=== PATIENT | male | born 1990 | race Two or more races ===

== ENCOUNTER 2025-01-06 22:00 | Inpatient (IN) | payer MEDICAID, OTHER ==
[~2025-01-06] VITALS: Ht 165.1 cm; Wt 75.2 kg
[2025-01-06 23:27] LABS: Hematocrit 48.9 % (41.0-53.0); Hemoglobin 17.1 g/dL (13.5-17.5); Mean Corpuscular Hemoglobin 31.1 pg (28.0-32.0); Mean Corpuscular Volume 88.7 fL (80.0-100.0); Nucleated Red Blood Cells % 0.1 %
[2025-01-06 23:28] LABS: Chloride 101 mmol/L (98-107); Sodium 140 mmol/L (136-145)
[2025-01-06 23:29] LABS: Anion Gap 19 (5-15); Carbon Dioxide 20 mmol/L (20-31)
[2025-01-06 23:30] LABS: Calcium 9.1 mg/dL (8.7-10.4)
[2025-01-06] MEDS: SODIUM CHLORIDE 0.9% 1,000 ML IV ONE (23:30)
[2025-01-06 23:33] LABS: Potassium 3.1 mmol/L (3.5-5.1)
[2025-01-06 23:35] LABS: Lipase 41 U/L (12-53)
[2025-01-06 23:40] LABS: BUN/Creatinine Ratio 5.5 (10.0-20.0); Blood Urea Nitrogen < 5 mg/dL (9-23); Glucose 139 mg/dL (74-106)
[2025-01-06] MEDS: ONDANSETRON HCL 4 MG/2 ML VIAL IV ONE (23:55)
--- NOTE | 2025-01-07 00:02 | ED.PDOC ---
GI ASSESSMENT HPI Comments 34-year-old male with a history of alcohol, and cocaine abuse presents to the ED with a chief complaint of diffuse abdominal pain with the associated nausea and vomiting. Patient states that his symptoms started this morning after drinking and using cocaine. Patient notes with the he has recently been throwing up blood. Patient denies any headache, blurry vision, weakness, chest pain, or any other associated symptoms, modifiers at this time. PHYSICAL EXAM: General: Awake, alert and oriented. Severe distress. Skin: Skin in warm, dry and intact. Appropriate color for ethnicity. HEENT: The head is normocephalic and atraumatic. Conjunctivae are clear without exudates or hemorrhage. Sclera is non-icteric. EOM are intact. No signs of nystagmus. Eyelids are normal in appearance without swelling or lesions. Oral mucosa is pink and moist Neck: The neck is supple with normal range of motion. No JVD. Cardiac: Heart rate and rhythm are normal. No murmurs, gallops, or rubs are auscultated. Respiratory: No signs of respiratory distress. Lung sounds are clear in all lobes bilaterally without rales, rhonchi, or wheezes. Abdominal: Abdomen is soft, non-tender without distention, guarding or rigidity. Bowel sounds are present and normoactive in all four quadrants. Extremities: Upper and lower extremities are atraumatic in appearance without deformity or edema. Neurological: The patient is awake, alert and oriented to person, place, and time with normal speech. Speech is clear. There is no facial asymmetry. Psychiatric: Appropriate mood and affect. Good judgement and insight. REVIEW OF SYSTEMS: General: No fever, no chills, or fatigue HEENT: No sore throat, no earache, no congestion, no neck pain. Cardiac: No chest pain. No palpitations. Lungs: No shortness of breath, no cough. GI: + nausea, + vomiting, + diarrhea, no constipation, + abdominal pain : No dysuria, frequency, or urgency. No hematuria. Musculoskeletal: No joint pain , no joint swelling, no extremity edema. Skin: No rash, no itching. Neuro: No headache, no dizziness, no weakness Chief Complaint: Abdominal Pain Time Seen by MD: 23:58 Reviewed Notes: Nurses Notes Allergies: Coded Allergies: NO KNOWN ALLERGIES (Unverified , 01/06/25) Information Source: Patient Mode of Arrival: EMS Timing: Hours Duration: Since onset, Hours Prehospital treatment: None Quality: Aching, Cramping Vomitus: Watery, Bloody Stool: Loose Severity: Severe Recent: None Recent Hx of: None Pain Location: Diffuse Modifying Factors: Exertion, Movement Associated sign and symptoms: Nausea, Vomiting, Diarrhea, Abdominal Pain Past Medical History PAST MEDICAL HISTORY: Denies Surgical History: Denies all surgeries Family History Family History: Unknown Social History Smoker: Non-Smoker Alcohol: Heavy Drugs: Other (Cocaine) Lives In: Home Was a procedure done? Was a procedure done?: No GI differential Dx Differential Diagnosis: Appendicitis, Bowel Obstruction, Cholangitis, Cholecystitis, Constipation, Gastritis/PUD, Gastroenteritis, UTI, Urolithiasis, Dehydration, Drug toxicity, Electrolyte Imbalance, Food Poisoning, Kidney Stone X-Ray, Labs, Meds, VS Vital Signs Date Time Temp Pulse Resp B/P (MAP) Pulse Ox O2 Delivery O2 Flow Rate FiO2 01/07/25 03:12 114 20 100 Room Air 01/07/25 03:12 98.3 114 20 135/80 (98) 100 98.3 01/06/25 22:06 98.0 122 16 143/87 98 98.0 Lab Test 01/06/25 23:07 Range/Units White Blood Count 6.8 4.4-10.8 10^3/uL Red Blood Count 5.51 4.5-5.90 10^6/uL Hemoglobin 17.1 13.5-17.5 g/dL Hematocrit 48.9 41.0-53.0 % Mean Corpuscular Volume 88.7 80.0-100.0 fL Mean Corpuscular Hemoglobin 31.1 28.0-32.0 pg Mean Corpuscular Hemoglobin Concent 35.1 32.0-36.0 g/dL Red Cell Distribution Width 14.0 11.8-14.3 % Platelet Count 444 140-450 10^3/uL Mean Platelet Volume 7.1 6.9-10.8 fL Neutrophils (%) (Auto) 70.3 37.0-80.0 % Lymphocytes (%) (Auto) 22.2 10.0-50.0 % Monocytes (%) (Auto) 6.8 0.0-12.0 % Eosinophils (%) (Auto) 0.3 0.0-7.0 % Basophils (%) (Auto) 0.4 0.0-2.0 % Neutrophils # (Auto) 4.8 1.6-8.6 10 ^3/uL Lymphocytes # (Auto) 1.5 0.4-5.4 10 ^3/uL Monocytes # (Auto) 0.5 0-1.3 10 ^3/uL Eosinophils # (Auto) 0 0-0.8 10 ^3/uL Basophils # (Auto) 0 0-0.2 10 ^3/uL Nucleated Red Blood Cells 0.1 % Sodium Level 140 136-145 mmol/L Potassium Level 3.1 L 3.5-5.1 mmol/L Chloride Level 101 98-107 mmol/L Carbon Dioxide Level 20 20-31 mmol/L Anion Gap 19 H 5-15 Blood Urea Nitrogen < 5 L 9-23 mg/dL Creatinine 0.91 0.700-1.30 mg/dL Glomerular Filtration Rate Calc 114 >90 mL/min BUN/Creatinine Ratio 5.5 L 10.0-20.0 Serum Glucose 139 H 74-106 mg/dL Calcium Level 9.1 8.7-10.4 mg/dL Lipase 41 12-53 U/L Current Medications Medications (Trade) Dose Ordered Sig/Latoya Route Start Time Stop Time Status Last Admin Ondansetron HCl (Zofran) 4 mg ONCE ONCE IV 01/06/25 23:30 01/06/25 23:31 DC 01/06/25 23:55 Sodium Chloride 1,000 ml @ 1,000 mls/hr Q1H ONCE IV 01/06/25 23:30 01/07/25 00:29 DC 01/06/25 23:30 Potassium Chloride (Klor-Con Tablet) 40 meq ONCE ONCE PO 01/07/25 01:00 01/07/25 01:06 DC 01/07/25 01:24 Pantoprazole Sodium (Protonix) 40 mg ONCE ONCE IV 01/07/25 01:45 01/07/25 01:46 DC 01/07/25 02:43 Metoclopramide HCl (Reglan Injection) 10 mg ONCE ONCE IV 01/07/25 01:45 01/07/25 01:46 DC 01/07/25 02:38 Al Hydrox/Mg Hydrox/Simethicone (Maalox Plus) 30 ml ONCE ONCE PO 01/07/25 02:45 01/07/25 02:47 DC 01/07/25 03:09 Lidocaine HCl (Xylocaine 2% Viscous) 10 ml ONCE ONCE PO 01/07/25 02:45 01/07/25 02:47 DC 01/07/25 03:09 Time of 1ST Reevaluation: 00:29 Reevaluation 1ST: Unchanged Patient Education/Counseling: Need For Follow Up Family Education/Counseling: No Family Present SEPSIS Sepsis Screen Date sepsis recognized/suspect: Jan 06, 2025 Time Sepsis recognized/suspect: 2205 Recent Procedure: No On Antibiotic Therapy: No Respiratory Rate >20: No Heart Rate >90: Yes Temp<36 C (96.8 F) or >38.3 C: No SBP <90 or MAP <65 mmHG: No New Acute Mental Status Change: No Is the patient on CPAP, BIPAP,: No Physician Orders Urinalysis (01/06/25 23:05) Ct Ab Pel With Iv Con Only (01/07/25 01:48) Vital Signs Date Time Temp Pulse Resp B/P (MAP) Pulse Ox O2 Delivery O2 Flow Rate FiO2 01/07/25 03:12 114 20 100 Room Air 01/07/25 03:12 98.3 114 20 135/80 (98) 100 98.3 01/06/25 22:06 98.0 122 16 143/87 98 98.0 Laboratory Tests Test 01/06/25 23:07 White Blood Count 6.8 10^3/uL (4.4-10.8) Medications Medications Dose Ordered Sig/Latoya Route Start Time Stop Time Status Last Admin Dose Admin Al Hydrox/Mg Hydrox/Simethicone 30 ml ONCE ONCE PO 01/07/25 02:45 01/07/25 02:47 DC 01/07/25 03:09 Lidocaine HCl 10 ml ONCE ONCE PO 01/07/25 02:45 01/07/25 02:47 DC 01/07/25 03:09 Metoclopramide HCl 10 mg ONCE ONCE IV 01/07/25 01:45 01/07/25 01:46 DC 01/07/25 02:38 Ondansetron HCl 4 mg ONCE ONCE IV 01/06/25 23:30 01/06/25 23:31 DC 01/06/25 23:55 Pantoprazole Sodium 40 mg ONCE ONCE IV 01/07/25 01:45 01/07/25 01:46 DC 01/07/25 02:43 Potassium Chloride 40 meq ONCE ONCE PO 01/07/25 01:00 01/07/25 01:06 DC 01/07/25 01:24 Sodium Chloride 1,000 ml @ 1,000 mls/hr Q1H ONCE IV 01/06/25 23:30 01/07/25 00:29 DC 01/06/25 23:30 Departure 1 Departure Time of Disposition: 04:31 Impression: Primary Impression: Upper GI bleed Additional Impression: Abdominal pain Disposition: ADMITTED INPATIENT Condition: Guarded Comments MDM: 34-year-old male who presents to the emergency department with abdominal pain, hematemesis Initial evaluation included thorough history, physical examination and appropriate diagnostic testing. Based on the clinical presentation and diagnostic findings, the patient appears to have upper GI bleed Given the complexity of the case and need for further management patient is being admitted to the hospitalist service for further monitoring, treatment and evaluation. Risks, benefits and alternatives of admission and proposed interventions were discussed with the patient. Patient is in agreement with the plan. Critical Care Note Critical Care Time?: No Stability Stability form required: No Heart Score Heart Score: Heart Score Response (Comments) Value History N/A 0 EKG N/A 0 Age N/A 0 Risk Factors N/A 0 Troponin N/A 0 Total 0 I personally scribed for SRINIVASAN ANDREW MD ([email or web address]) on 01/07/25 at 00:02. Electronically submitted by Rico Valdovinos ([email or web address]). SRINIVASAN ANDREW MD Jan 07, 2025 00:02
[2025-01-07] MEDS: POTASSIUM CHL 20 Meq TABLET PO ONE (01:24)
[2025-01-07] MEDS: IOHEXOL 300 MG/ML 100ML BOTTLE IJ ONE (02:07)
[2025-01-07] MEDS: METOCLOPRAMIDE HCL 5MG/ml INJ 2ml VIAL IV ONE (02:38)
[2025-01-07] MEDS: PANTOPRAZOLE 40 MG/10 ML VIAL INJ IV ONE (02:43)
[2025-01-07] MEDS: MORPHINE SULFATE INJ 2 MG/ml SYRG IV ONE (02:45)
[2025-01-07] MEDS: MAALOX PLUS or MAALOX 30 ML PO ONE (03:09)
[2025-01-07] MEDS: LIDOCAINE VISCOUS 2% 15ML UD PO ONE (03:09)
--- NOTE | 2025-01-07 03:13 | DVH ---
Exam: CT CT AB PEL WITH IV CON ONLY History: hemetemesis, abdominal pain Comparison Study: None TECHNIQUE: Multidetector CT of the abdomen was performed from lung bases to pubic symphysis. Imaging was performed without IV contrast. Axial, coronal and sagittal multiplanar reformats were obtained fr om the axial data set by the technologist. Radiation Dose Information: Dose-length product is 690.94 mGy*cm FINDINGS: Limited sections of the lung bases demonstrate no focal pulmonary mass. The liver, spleen, pancreas, and both adrenal glands demonstrate no acute findings. Hepatic steatosis and hepatomegaly. The gallbladder is unremarkable. The stomach is unremarkable. The small bowel loops are not dilated. The appendix is not clearly identified, although there are no secondary signs of appendicitis. No colonic obstruction. Diffuse colonic inflammation may reflect pancolitis. Bilateral kidneys are unremarkable. No hydronephrosis. Urinary bladder wall thickening which may reflect cystitis vs partial nondistention; consider correla tion with urinarlysis. No significant lymphadenopathy. No free air or free fluid. The aorta and IVC demonstrate no acute findings. Visualized osseous structures demonstrate no acute abnormality. IMPRESSION: 1. Diffuse colonic inflammation may reflect pancolitis. No bowel obstruction. 2. Urinary bladder wall thickening which may reflect cystitis vs partial nondistention; consider efrain elation with urinarlysis.
--- NOTE | 2025-01-07 04:53 | DVHHPRES ---
History of Present Illness History of Present Illness Dupplicated. Please dismiss. Review of Systems Allergies: Coded Allergies: NO KNOWN ALLERGIES (Unverified , 01/06/25) Exam Vital Signs Vital Signs Date Time Temp Pulse Resp B/P (MAP) Pulse Ox O2 Delivery O2 Flow Rate FiO2 01/07/25 03:12 114 20 100 Room Air 01/07/25 03:12 98.3 135/80 (98) 98.3 Labs/Xrays Labs Test 01/06/25 23:07 Range/Units White Blood Count 6.8 4.4-10.8 10^3/uL Red Blood Count 5.51 4.5-5.90 10^6/uL Hemoglobin 17.1 13.5-17.5 g/dL Hematocrit 48.9 41.0-53.0 % Mean Corpuscular Volume 88.7 80.0-100.0 fL Mean Corpuscular Hemoglobin 31.1 28.0-32.0 pg Mean Corpuscular Hemoglobin Concent 35.1 32.0-36.0 g/dL Red Cell Distribution Width 14.0 11.8-14.3 % Platelet Count 444 140-450 10^3/uL Mean Platelet Volume 7.1 6.9-10.8 fL Neutrophils (%) (Auto) 70.3 37.0-80.0 % Lymphocytes (%) (Auto) 22.2 10.0-50.0 % Monocytes (%) (Auto) 6.8 0.0-12.0 % Eosinophils (%) (Auto) 0.3 0.0-7.0 % Basophils (%) (Auto) 0.4 0.0-2.0 % Neutrophils # (Auto) 4.8 1.6-8.6 10 ^3/uL Lymphocytes # (Auto) 1.5 0.4-5.4 10 ^3/uL Monocytes # (Auto) 0.5 0-1.3 10 ^3/uL Eosinophils # (Auto) 0 0-0.8 10 ^3/uL Basophils # (Auto) 0 0-0.2 10 ^3/uL Nucleated Red Blood Cells 0.1 % Sodium Level 140 136-145 mmol/L Potassium Level 3.1 L 3.5-5.1 mmol/L Chloride Level 101 98-107 mmol/L Carbon Dioxide Level 20 20-31 mmol/L Anion Gap 19 H 5-15 Blood Urea Nitrogen < 5 L 9-23 mg/dL Creatinine 0.91 0.700-1.30 mg/dL Glomerular Filtration Rate Calc 114 >90 mL/min BUN/Creatinine Ratio 5.5 L 10.0-20.0 Serum Glucose 139 H 74-106 mg/dL Calcium Level 9.1 8.7-10.4 mg/dL Lipase 41 12-53 U/L SEPSIS Sepsis Screen Date sepsis recognized/suspect: Jan 07, 2025 Time Sepsis recognized/suspect: 313 Recent Procedure: No On Antibiotic Therapy: No Respiratory Rate >20: No Heart Rate >90: Yes Temp<36 C (96.8 F) or >38.3 C: No SBP <90 or MAP <65 mmHG: No New Acute Mental Status Change: No Is the patient on CPAP, BIPAP,: No Physician Orders Urinalysis (01/06/25 23:05) Ct Ab Pel With Iv Con Only (01/07/25 01:48) Vital Signs Date Time Temp Pulse Resp B/P (MAP) Pulse Ox O2 Delivery O2 Flow Rate FiO2 01/07/25 03:12 114 20 100 Room Air 01/07/25 03:12 98.3 114 20 135/80 (98) 100 98.3 01/06/25 22:06 98.0 122 16 143/87 98 98.0 Laboratory Tests Test 01/06/25 23:07 White Blood Count 6.8 10^3/uL (4.4-10.8) Medications Medications Dose Ordered Sig/Latoya Route Start Time Stop Time Status Last Admin Dose Admin Al Hydrox/Mg Hydrox/Simethicone 30 ml ONCE ONCE PO 01/07/25 02:45 01/07/25 02:47 DC 01/07/25 03:09 30 ML Lidocaine HCl 10 ml ONCE ONCE PO 01/07/25 02:45 01/07/25 02:47 DC 01/07/25 03:09 10 ML Metoclopramide HCl 10 mg ONCE ONCE IV 01/07/25 01:45 01/07/25 01:46 DC 01/07/25 02:38 10 MG Ondansetron HCl 4 mg ONCE ONCE IV 01/06/25 23:30 01/06/25 23:31 DC 01/06/25 23:55 4 MG Pantoprazole Sodium 40 mg ONCE ONCE IV 01/07/25 01:45 01/07/25 01:46 DC 01/07/25 02:43 40 MG Potassium Chloride 40 meq ONCE ONCE PO 01/07/25 01:00 01/07/25 01:06 DC 01/07/25 01:24 40 MEQ Sodium Chloride 1,000 ml @ 1,000 mls/hr Q1H ONCE IV 01/06/25 23:30 01/07/25 00:29 DC 01/06/25 23:30 1,000 MLS/HR AAYUSH BOYLE RESIDENT Jan 07, 2025 04:53
[2025-01-07] MEDS: cefTRIAXone 1GM/50ML D5W 50 ML IV ONE ×2 (05:30→07:23)
--- NOTE | 2025-01-07 06:07 | DVHHPRES ---
History of Present Illness Resident Creating Document: AAYUSH BOYLE RESIDENT History of Present Illness Justin King is a 34-year-old male with past medical history of GERD, peptic ulcer disease, colitis, alcohol and cocaine abuse. The patient presented to the ED with a chief complaint of acute epigastric abdominal pain 02/04, continue, no irradiation, associated with nausea and vomiting >#5. The patient reports being on alcoholics anonymous program, he stop drinking 2 months ago, but he relapsed and states he is been using large amounts of alcohol and cocaine for the last 4 days in a row. Today, he noticing hematemesis #3, malaise, dysuria and hand tremors that prompt his visit to the ED. The patient denies any fever, chills, lightheaded, hematochezia, weakness, chest pain or other symptoms. On initial evaluation the CT scan showed diffuse colonic inflammation may reflect pancolitis. No bowel obstruction and urinary bladder wall thickening which may reflect cystitis vs partial non-distention. The patient will be admitted for further assessments and management. 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 Patient quit 2 mo ago. He was in AA program. ) Drugs: Cocaine (Everyday), Marijuana (Everyday) Lives: Alone Review of Systems Constitutional: Yes: Malaise; No: Fever, Chills, Sweats, Weakness, Other Eyes: No: Pain, Vision change, Conjunctivae inflammation, Eyelid inflammation, Other, Redness ENT: No: Ear pain, Ear discharge, Nose pain, Nose discharge, Nose congestion, Mouth pain, Mouth swelling, Throat pain, Throat swelling, Other Respiratory: No: Cough, Dry, Shortness of breath, SOB with excertion, Wheezing, Hemoptysis, Pleuritic Pain, Sputum, Wheezing, Other Cardiovascular: No: Chest Pain, Palpitations, Orthopnea, Paroxysmal Noc. Dyspnea, Edema, Lt Headedness, Other Gastrointestinal: Nausea, Vomiting, Abdominal Pain, Other (Hematemesis) Genitourinary: Dysuria; No Frequency, No Incontinence, No Hematuria, No Retention, No Other Musculoskeletal: No: other, neck pain, shoulder pain, arm pain, back pain, hand pain, leg pain, foot pain Skin: No: Rash, Lesions, Jaundice, Bruising, Other Neurological: No: Weakness, Numbness, Incoordination, Change in speech, Confusion, Seizures, Other Allergies: Coded Allergies: NO KNOWN ALLERGIES (Unverified , 01/06/25) Exam Vital Signs Vital Signs Date Time Temp Pulse Resp B/P (MAP) Pulse Ox O2 Delivery O2 Flow Rate FiO2 01/07/25 03:12 114 20 100 Room Air 01/07/25 03:12 98.3 135/80 (98) 98.3 General Appearance: Alert, Oriented X3, Cooperative, mild distress HEENT: Atraumatic, Mucous membr. moist/pink Respiratory: Clear to auscultation, Normal air movement Cardiovascular: Regular rate, Normal S1, Normal S2, No murmurs Abdominal: Soft, Other (Tenderness to palpation in epigastric. ) Extremities: No clubbing, No cyanosis, No edema, Normal pulses, No tenderness/swelling Skin: No rashes, No breakdown, No significant lesion Neuro: Normal gait, Normal speech, Strength at 5/5 X4 ext, Normal tone, Sensation intact, Other (Light hand tremor, anxious, CIWAS score: 5) Psych/Mental Status: Mental status NL, Mood NL Labs/Xrays Labs Test 01/06/25 23:07 Range/Units White Blood Count 6.8 4.4-10.8 10^3/uL Red Blood Count 5.51 4.5-5.90 10^6/uL Hemoglobin 17.1 13.5-17.5 g/dL Hematocrit 48.9 41.0-53.0 % Mean Corpuscular Volume 88.7 80.0-100.0 fL Mean Corpuscular Hemoglobin 31.1 28.0-32.0 pg Mean Corpuscular Hemoglobin Concent 35.1 32.0-36.0 g/dL Red Cell Distribution Width 14.0 11.8-14.3 % Platelet Count 444 140-450 10^3/uL Mean Platelet Volume 7.1 6.9-10.8 fL Neutrophils (%) (Auto) 70.3 37.0-80.0 % Lymphocytes (%) (Auto) 22.2 10.0-50.0 % Monocytes (%) (Auto) 6.8 0.0-12.0 % Eosinophils (%) (Auto) 0.3 0.0-7.0 % Basophils (%) (Auto) 0.4 0.0-2.0 % Neutrophils # (Auto) 4.8 1.6-8.6 10 ^3/uL Lymphocytes # (Auto) 1.5 0.4-5.4 10 ^3/uL Monocytes # (Auto) 0.5 0-1.3 10 ^3/uL Eosinophils # (Auto) 0 0-0.8 10 ^3/uL Basophils # (Auto) 0 0-0.2 10 ^3/uL Nucleated Red Blood Cells 0.1 % Sodium Level 140 136-145 mmol/L Potassium Level 3.1 L 3.5-5.1 mmol/L Chloride Level 101 98-107 mmol/L Carbon Dioxide Level 20 20-31 mmol/L Anion Gap 19 H 5-15 Blood Urea Nitrogen < 5 L 9-23 mg/dL Creatinine 0.91 0.700-1.30 mg/dL Glomerular Filtration Rate Calc 114 >90 mL/min BUN/Creatinine Ratio 5.5 L 10.0-20.0 Serum Glucose 139 H 74-106 mg/dL Calcium Level 9.1 8.7-10.4 mg/dL Lipase 41 12-53 U/L SEPSIS Sepsis Screen Date sepsis recognized/suspect: Jan 07, 2025 Time Sepsis recognized/suspect: 313 Recent Procedure: No On Antibiotic Therapy: No Respiratory Rate >20: No Heart Rate >90: Yes Temp<36 C (96.8 F) or >38.3 C: No SBP <90 or MAP <65 mmHG: No New Acute Mental Status Change: No Is the patient on CPAP, BIPAP,: No Physician Orders Urinalysis (01/06/25 23:05) Ct Ab Pel With Iv Con Only (01/07/25 01:48) Vital Signs Date Time Temp Pulse Resp B/P (MAP) Pulse Ox O2 Delivery O2 Flow Rate FiO2 01/07/25 03:12 114 20 100 Room Air 01/07/25 03:12 98.3 114 20 135/80 (98) 100 98.3 01/06/25 22:06 98.0 122 16 143/87 98 98.0 Laboratory Tests Test 01/06/25 23:07 White Blood Count 6.8 10^3/uL (4.4-10.8) Medications Medications Dose Ordered Sig/Latoya Route Start Time Stop Time Status Last Admin Dose Admin Al Hydrox/Mg Hydrox/Simethicone 30 ml ONCE ONCE PO 01/07/25 02:45 01/07/25 02:47 DC 01/07/25 03:09 30 ML Lidocaine HCl 10 ml ONCE ONCE PO 01/07/25 02:45 01/07/25 02:47 DC 01/07/25 03:09 10 ML Metoclopramide HCl 10 mg ONCE ONCE IV 01/07/25 01:45 01/07/25 01:46 DC 01/07/25 02:38 10 MG Ondansetron HCl 4 mg ONCE ONCE IV 01/06/25 23:30 01/06/25 23:31 DC 01/06/25 23:55 4 MG Pantoprazole Sodium 40 mg ONCE ONCE IV 01/07/25 01:45 01/07/25 01:46 DC 01/07/25 02:43 40 MG Potassium Chloride 40 meq ONCE ONCE PO 01/07/25 01:00 01/07/25 01:06 DC 01/07/25 01:24 40 MEQ Sodium Chloride 1,000 ml @ 1,000 mls/hr Q1H ONCE IV 01/06/25 23:30 01/07/25 00:29 DC 01/06/25 23:30 1,000 MLS/HR Assessment/Plan Assessment/Plan #Intractable, acute abdominal pain likely due to Pancolitis #Rule out Upper GI Bleeding, PUD. #PO intolerance #GERD IV Fluids NPO Pantoprazole 40 mg IV BID Zofran 4mg IV Ceftriaxone 1g IV Metronidazole IV FOBT Consider GI consult #Alcohol abuse disorder #Alcohol withdrawal CIWAS score: 5 Banana Bag Librium Folic Acid. #Hypokalemia Potassium 40 meq Monitor K and Mg levels #Polysubstance abuse Counselling about life style changes. NPO diet DVT prophylaxis- ambulating. PUD prophylaxis Protonic. Goals of care discussed with the patient > 35 min. Discussed plan of care with Dr. Desai Code status: Full code PCP: Not established yet, Patient will follow up in the discharge clinic. Plan discussed with: Patient, the patient agrees with the admission plan. Plan discussed with: Patient Date of Service: Jan 07, 2025 Billing Provider: AAYUSH BOYLE Common Visit Codes: [id number] INP/OBS CARE (HIGH) Secondary Visit Codes: [id number] CHNG SMOKING 3-10m, [id number] CARE PLAN 30 MINUTES TAMARAAYUSH RESIDENT Jan 07, 2025 06:07
[2025-01-07] MEDS: FOLIC ACID 1 MG TAB PO ONE ×2 (07:04→07:05)
[2025-01-07 08:23] LABS: Hematocrit 45.4 % (41.0-53.0); Hemoglobin 16.3 g/dL (13.5-17.5); Mean Corpuscular Hemoglobin 31.9 pg (28.0-32.0); Mean Corpuscular Volume 89.0 fL (80.0-100.0); Nucleated Red Blood Cells % 0.1 %
[2025-01-07 08:27] LABS: Chloride 102 mmol/L (98-107); Potassium 4.1 mmol/L (3.5-5.1); Sodium 139 mmol/L (136-145)
[2025-01-07 08:28] LABS: Anion Gap 17 (5-15); Calcium 9.4 mg/dL (8.7-10.4)
[2025-01-07 08:33] LABS: BUN/Creatinine Ratio 5.0 (10.0-20.0)
[2025-01-07 08:36] LABS: Blood Urea Nitrogen 5 mg/dL (9-23); Carbon Dioxide 20 mmol/L (20-31); Glucose 135 mg/dL (74-106)
[2025-01-07] MEDS: FOLIC ACID 1 MG TAB PO SCH (12:24)
[2025-01-07] MEDS: THIAMINE HCL 100 MG TAB PO SCH (12:24)
[2025-01-07] MEDS: PANTOPRAZOLE 40 MG/10 ML VIAL INJ IV SCH (12:25)
[2025-01-07] MEDS: THIAMINE 100mg/ml INJ (200mg/2ml VIAL) IV ONE (12:25)
[2025-01-07] MEDS: THIAMINE HCL 100 MG TAB ONE (12:26)
[2025-01-07 14:46] VITALS: PULSE 98; RESP 14; O2SAT 98
[2025-01-07 15:50] VITALS: BP 130/86; PULSE 98; RESP 18; TEMP 98.2; O2SAT 99
[2025-01-07] MEDS: D5W/SOD CHL 0.45% 1,000 ML IV SCH (16:43)
[2025-01-07 17:00] VITALS: BP 130/86; PULSE 98; RESP 19; TEMP 98.2; O2SAT 99
--- NOTE | 2025-01-07 17:50 | DVHCONRES ---
Date Seen: Jan 07, 2025 Resident Creating Document: ALISSA LOCKE RESIDENT Referring Physician PEPPER CHERY MD Reason for Consultation COLITIS History of Present Illness Patient is a middle-aged male with a significant history of GERD, peptic ulcer disease, chronic alcohol abuse, cocaine use, tobacco use, and prior marijuana use. Presented with acute epigastric and abdominal pain rated 9/10, associated with nausea, vomiting, and hematemesis following relapse into heavy alcohol use (4 days ago) and cocaine use. Last alcohol intake prior to relapse was 2 months ago. No diarrhea reported. Last bowel movement was 2 days ago. Today, patient reports improved nausea and vomitingcurrently tolerating NPO status without emesis. Mild residual epigastric discomfort noted. No further hematemesis since admission. Denies melena or hematochezia. Interval Events / Today's Progress * GI symptoms: Hematemesis has not recurred. Mild epigastric tenderness persists. * Nutrition: NPO for bowel rest; on IV fluids. * Antibiotics: Continuing ceftriaxone 1g IV daily and metronidazole IV for suspected colitis. * Labs: * WBC increased from 6.8 ? 10.1 10/L with neutrophilia (81.9%). * Hgb stable at 16.3 g/dL. * Potassium improved from 3.1 to 4.1 mmol/L after repletion. * Magnesium 1.8 mg/dL (low-normal). * CRP 0.15 mg/dL (normal). * Lipase normal (41). * Creatinine stable (1.0). * Imaging: CT Abdomen/Pelvis with contrast shows diffuse colonic inflammation suggesting pancolitis; no bowel obstruction; bladder wall thickening suggestive of cystitis vs. partial nondistention; hepatic steatosis. * Microbiology: Stool occult blood, stool WBC, stool bacterial culture, and C. difficile pending. 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 Patient quit 2 mo ago. He was in AA program. ) Drugs: Cocaine (Everyday), Marijuana (Everyday) Lives: Alone Allergies: Coded Allergies: NO KNOWN ALLERGIES (Unverified , 01/06/25) Current Medications Current Medications Medications (Trade) Dose Ordered Sig/Latoya Route PRN Reason Start Time Stop Time Status Last Admin Thiamine HCl 100 mg DAILY PO 01/07/25 10:00 01/07/25 12:24 Folic Acid 1 mg DAILY PO 01/07/25 10:00 Folic Acid 1 mg/ Multivitamins 10 ml/Magnesium Sulfate 8 meq/ Thiamine HCl 100 mg/Dextrose 1,013.2 ml @ 125.001 mls/hr DAILY@1800 INJ 01/07/25 18:00 Metronidazole 100 ml @ 100 mls/hr DAILY IV 01/07/25 10:00 01/07/25 12:24 Chlordiazepoxide HCl (Librium Capsule) 50 mg Q8H PO 01/07/25 05:45 01/07/25 06:43 DC Chlordiazepoxide HCl (Librium Capsule) 50 mg Q12HR PO 01/08/25 10:00 01/08/25 22:01 Chlordiazepoxide HCl (Librium Capsule) 25 mg Q12HR PO 01/09/25 10:00 01/09/25 22:01 Chlordiazepoxide HCl (Librium Capsule) 25 mg QAM PO 01/10/25 07:00 01/10/25 07:01 Dextrose/Sodium Chloride 1,000 ml @ 75 mls/hr [id number] IV 01/07/25 08:00 01/07/25 16:43 Ondansetron HCl (Zofran) 4 mg Q4HP PRN IV NAUSEA / VOMITING 01/07/25 05:45 Pantoprazole Sodium (Protonix) 40 mg BID IV 01/07/25 10:00 Chlordiazepoxide HCl (Librium Capsule) 50 mg Q8H PO 01/07/25 06:45 01/07/25 22:46 01/07/25 16:43 Review of Systems * Constitutional: No fever, chills, or sweats. * GI: Epigastric abdominal pain, nausea (improved), prior hematemesis, no diarrhea, no melena, no hematochezia, no bloating or distention. * : Dysuria persists. Vital Signs Vital Signs Date Time Temp Pulse Resp B/P (MAP) Pulse Ox O2 Delivery O2 Flow Rate FiO2 01/07/25 17:00 98.2 98 19 130/86 (101) 99 98.2 8/13/25 15:50 Room Air* 0 21 Physical Exam * General: Alert, oriented, no acute distress. * Abdomen: Soft, mild tenderness to palpation in epigastric region; no rebound, guarding, or rigidity. Bowel sounds present. No hepatosplenomegaly on exam. Labs/Diagnostic Data Labs Test 01/07/25 08:04 01/06/25 23:07 Range/Units White Blood Count 10.1 # 4.4-10.8 10^3/uL Red Blood Count 5.10 4.5-5.90 10^6/uL Hemoglobin 16.3 13.5-17.5 g/dL Hematocrit 45.4 41.0-53.0 % Mean Corpuscular Volume 89.0 80.0-100.0 fL Mean Corpuscular Hemoglobin 31.9 28.0-32.0 pg Mean Corpuscular Hemoglobin Concent 35.8 32.0-36.0 g/dL Red Cell Distribution Width 14.3 11.8-14.3 % Platelet Count 354 140-450 10^3/uL Mean Platelet Volume 7.6 6.9-10.8 fL Neutrophils (%) (Auto) 81.9 H 37.0-80.0 % Lymphocytes (%) (Auto) 10.7 10.0-50.0 % Monocytes (%) (Auto) 7.0 0.0-12.0 % Eosinophils (%) (Auto) 0.0 0.0-7.0 % Basophils (%) (Auto) 0.4 0.0-2.0 % Neutrophils # (Auto) 8.3 1.6-8.6 10 ^3/uL Lymphocytes # (Auto) 1.1 0.4-5.4 10 ^3/uL Monocytes # (Auto) 0.7 0-1.3 10 ^3/uL Eosinophils # (Auto) 0 0-0.8 10 ^3/uL Basophils # (Auto) 0 0-0.2 10 ^3/uL Nucleated Red Blood Cells 0.1 % Sodium Level 139 136-145 mmol/L Potassium Level 4.1 3.5-5.1 mmol/L Chloride Level 102 98-107 mmol/L Carbon Dioxide Level 20 20-31 mmol/L Anion Gap 17 H 5-15 Blood Urea Nitrogen 5 L 9-23 mg/dL Creatinine 1.00 0.700-1.30 mg/dL Glomerular Filtration Rate Calc 102 >90 mL/min BUN/Creatinine Ratio 5.0 L 10.0-20.0 Serum Glucose 135 H 74-106 mg/dL Calcium Level 9.4 8.7-10.4 mg/dL Magnesium Level 1.8 1.6-2.6 mg/dL C-Reactive Protein High Sensitivity 0.15 <1.0 mg/dL Lipase 41 12-53 U/L Assessment 1. Intractable acute abdominal pain likely secondary to diffuse colonic inflammation (pancolitis) as per CT. Differential includes infectious colitis, inflammatory bowel disease, ischemic colitis, or drug/alcohol-related colitis. 2. Upper GI bleeding (hematemesis) Rule out peptic ulcer rebleed, gastritis, MalloryWeiss tear. 3. GERD / Peptic ulcer disease Chronic, exacerbated by alcohol relapse. 4. Alcohol-induced gastritis vs. recurrent peptic ulcer flare. 5. Alcohol abuse disorder with recent relapse. 6. Polysubstance abuse (cocaine) may contribute to ischemic bowel risk. Plan/Recommendation Gastrointestinal * Continue NPO for bowel rest; consider advancement to clear liquids when pain and bleeding fully resolve. * Maintain IV pantoprazole 40 mg BID for ulcer prophylaxis and suspected upper GI bleed. * Continue empiric antibiotics: ceftriaxone 1g IV daily + metronidazole IV for colitis pending stool cultures and C. diff results. * Monitor stool output, color, and frequency; document any blood. * Follow up on pending stool occult blood, WBC, bacterial culture, C. diff toxin assay. * Avoid NSAIDs and anticoagulants unless strongly indicated. Hepatic / Alcohol-related * Continue [facility] protocol monitoring. * Maintain banana bag supplementation with folic acid, thiamine, and multivitamins. 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 Plan discussed with: Patient CHUCKYSALLYALLYN SHORT RESIDENT Jan 07, 2025 17:50
[2025-01-07] MEDS: FOLIC ACID 1 MG, MULTIPLE VITAMIN 10 ML, MAGNESIUM SULF SDV 50% 8 MEQ, THIAMINE INJ 100... INJ SCH (18:41)
[2025-01-07 20:00] VITALS: PULSE 100; RESP 16
[2025-01-07 21:00] VITALS: BP 136/92; PULSE 100; RESP 16; TEMP 97.6; O2SAT 100
[2025-01-08] VITALS (8 sets, daily range): BP systolic 105–140; BP diastolic 66–93; PULSE 77–101; RESP 16–18; TEMP 97.6–98.9; O2SAT 97–100
[2025-01-08] MEDS: THIAMINE HCL 100 MG TAB PO ONE (12:10)
[2025-01-08] MEDS: FOLIC ACID 1 MG TAB PO ONE (12:10)
[2025-01-08] MEDS: MULTIPLE VITAMIN TAB PO ONE (15:24)
[2025-01-08] MEDS: MAGNESIUM OXIDE 400 MG TAB PO ONE (15:24)
[2025-01-08] MEDS: ONDANSETRON HCL 4 MG/2 ML VIAL IV PRN (16:01)
--- NOTE | 2025-01-08 16:34 | DVHPN2 ---
Progress Note Date Seen: Jan 08, 2025 Resident Creating Document: ALISSA LOCKE RESIDENT Has the PT tested + for MRSA If YES, has PT been informed?: No Medical Necessity Reason Pt with a Central, PICC or Fol: No Subjective Review of Systems Today, the patient reports improvement in abdominal pain compared to yesterday, now mild and localized to epigastrium. Denies nausea or vomiting since yesterday. No further hematemesis or melena. Last bowel movement was 2 days ago. The patient currently on clear liquid diet and will be on NPO after midnight for EGD which is scheduled tomorrow. EGD has been scheduled for tomorrow for further assessment of upper GI bleeding and mucosal pathology. Objective vital signs Vital Sign Date Time Temp Pulse Resp B/P (MAP) Pulse Ox O2 Delivery O2 Flow Rate FiO2 01/08/25 13:00 98.0 101 18 113/85 (94) 100 98.0 01/07/25 20:00 Room Air* 0 21 Total Intake and Output 01/07/25 01/07/25 01/08/25 15:00 23:00 07:00 Intake Total 0 ml 800 ml Output Total 1200 ml Balance 0 ml -400 ml medications Current Medications Medications Dose Ordered Sig/Latoya Route Start Time Stop Time Status Last Admin Dose Admin Metronidazole 100 ml @ 100 mls/hr DAILY IV 01/07/25 10:00 01/08/25 15:23 100 MLS/HR Chlordiazepoxide HCl 50 mg Q12HR PO 01/08/25 10:00 01/08/25 22:01 01/08/25 12:10 50 MG Chlordiazepoxide HCl 25 mg Q12HR PO 01/09/25 10:00 01/09/25 22:01 Chlordiazepoxide HCl 25 mg QAM PO 01/10/25 07:00 01/10/25 07:01 Dextrose/Sodium Chloride 1,000 ml @ 75 mls/hr [id number] IV 01/07/25 08:00 01/08/25 10:40 75 MLS/HR Ondansetron HCl 4 mg Q4HP PRN IV 01/07/25 05:45 01/08/25 16:01 4 MG Pantoprazole Sodium 40 mg BID IV 01/07/25 10:00 01/08/25 10:49 40 MG Folic Acid 1 mg DAILY PO 01/09/25 10:00 Multivitamins 1 tab DAILY PO 01/09/25 10:00 Magnesium Oxide 400 mg DAILY PO 01/09/25 10:00 Thiamine HCl 100 mg DAILY PO 01/09/25 10:00 Examination General: Alert, oriented, no acute distress. * Abdomen: Soft, mild tenderness to palpation in epigastric region; no rebound, guarding, or rigidity. Bowel sounds present. No hepatosplenomegaly on exam. laboratory and microbiology Laboratory Tests 01/07/25 08:04 Test 01/07/25 08:04 Range/Units Serum Glucose 135 H 74-106 mg/dL Problem List/Assessment/Plan Problem List/Assessment/Plan Assessment 1. Intractable acute abdominal pain likely secondary to diffuse colonic inflammation (pancolitis) as per CT. Differential includes infectious colitis, inflammatory bowel disease, ischemic colitis, or drug/alcohol-related colitis. 2. Upper GI bleeding (hematemesis) Rule out peptic ulcer rebleed, gastritis, MalloryWeiss tear. 3. GERD / Peptic ulcer disease Chronic, exacerbated by alcohol relapse. 4. Alcohol-induced gastritis vs. recurrent peptic ulcer flare. 5. Alcohol abuse disorder with recent relapse. 6. Polysubstance abuse (cocaine) may contribute to ischemic bowel risk. Plan/Recommendation Gastrointestinal Continue clear liquid diet as tolerated and place the patient NPO after midnight. Proceed with scheduled EGD tomorrow to assess upper GI tract for bleeding source consider advancement of diet when pain and bleeding fully resolve. * Maintain IV pantoprazole 40 mg BID for ulcer prophylaxis and suspected upper GI bleed. * Continue empiric antibiotics: ceftriaxone 1g IV daily + metronidazole IV for colitis pending stool cultures and C. diff results. * Monitor stool output, color, and frequency; document any blood. * Follow up on pending stool occult blood, WBC, bacterial culture, C. diff toxin assay. * Avoid NSAIDs and anticoagulants unless strongly indicated. Hepatic / Alcohol-related * Continue [facility] protocol monitoring. * Maintain banana bag supplementation with folic acid, thiamine, and multivitamins. 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 Plan discussed with: Patient My Orders My Orders Orders - ALISSA LOCKE RESIDENT Procedure Category Date Status Time Obtain Consent For: ORDERS 01/08/25 Transmitted 12:05 Npo (Nothing By DIET 01/09/25 Transmitted Mouth) Diet Breakfast Obtain Consent For KEITH 01/08/25 In Process Anesthesia 12:05 ALISSA LOCKE RESIDENT Jan 08, 2025 16:34
--- NOTE | 2025-01-08 17:11 | DVHPN2 ---
Subjective I am assuming the care of the patient from today onwards patient was admitted for abdominal pain nausea and vomiting. Changes from previous H/P or p: No Changes Eyes: No Pain, No Vision change, No Conjunctivae inflammation, No Eyelid inflammation, No Other, No Redness ENT: No Ear pain, No Ear discharge, No Nose pain, No Nose discharge, No Nose congestion, No Mouth pain, No Mouth swelling, No Throat pain, No Throat swelling, No Other Cardiovascular: No Chest Pain, No Palpitations, No Orthopnea, No Paroxysmal Noc. Dyspnea, No Edema, No Lt Headedness, No Other Respiratory: No Cough, No Dry, No Shortness of breath, No SOB with excertion, No Wheezing, No Hemoptysis, No Pleuritic Pain, No Sputum, No Other Gastrointestinal: Nausea, Vomiting, Abdominal Pain, Other (Hematemesis) Genitourinary: Dysuria; No Frequency, No Incontinence, No Hematuria, No Retention, No Other Musculoskeletal: No other, No neck pain, No shoulder pain, No arm pain, No back pain, No hand pain, No leg pain, No foot pain Skin: No Rash, No Lesions, No Jaundice, No Bruising, No Other Objective Vitals Vital Signs Date Time Temp Pulse Resp B/P (MAP) Pulse Ox O2 Delivery O2 Flow Rate FiO2 01/08/25 13:00 98.0 101 18 113/85 (94) 100 98.0 01/07/25 20:00 Room Air* 0 21 Intake/Output Intake and Output 01/08/25 07:00 Intake Total 800 ml Output Total 1200 ml Balance -400 ml Intake Oral 800 ml Output Urine Total 1200 ml Exam HEENT pupils are reactive Neck is supple CV is S1-S2 regular rate and rhythm Respiratory are clear GI positive bowel sound Extremity no edema [employer]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 Medications Current Medications Medications Dose Ordered Sig/Latoya Route Start Time Stop Time Status Last Admin Dose Admin Metronidazole 100 ml @ 100 mls/hr DAILY IV 01/07/25 10:00 01/08/25 15:23 100 MLS/HR Chlordiazepoxide HCl 50 mg Q12HR PO 01/08/25 10:00 01/08/25 22:01 01/08/25 12:10 50 MG Chlordiazepoxide HCl 25 mg Q12HR PO 01/09/25 10:00 01/09/25 22:01 Chlordiazepoxide HCl 25 mg QAM PO 01/10/25 07:00 01/10/25 07:01 Dextrose/Sodium Chloride 1,000 ml @ 75 mls/hr [id number] IV 01/07/25 08:00 01/08/25 10:40 75 MLS/HR Ondansetron HCl 4 mg Q4HP PRN IV 01/07/25 05:45 01/08/25 16:01 4 MG Pantoprazole Sodium 40 mg BID IV 01/07/25 10:00 01/08/25 10:49 40 MG Folic Acid 1 mg DAILY PO 01/09/25 10:00 Multivitamins 1 tab DAILY PO 01/09/25 10:00 Magnesium Oxide 400 mg DAILY PO 01/09/25 10:00 Thiamine HCl 100 mg DAILY PO 01/09/25 10:00 Laboratory Results Laboratory Tests 01/07/25 08:04 Assessment/Plan Assessment/Plan 34-year-old male with a known history of chronic alcoholism, illicit drug use including cocaine, history of chronic marijuana use presented to the hospital with the abdominal pain nausea and vomiting found to have 1. Intractable abdominal pain with the nausea and vomiting, currently nausea and vomiting resolved 2. Pancolitis rule out inflammatory bowel disease/ischemic colitis 3. Peptic ulcer disease 4. Chronic alcoholism 5. 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 Plan discussed with: Patient Date of Service: Jan 08, 2025 Billing Provider: PEPPER CHERY MD Common Visit Codes: [id number] INP/OBS CARE(MOD) PEPPER CHERY MD Jan 08, 2025 17:11
[2025-01-08] MEDS: FOLIC ACID 1 MG, MULTIPLE VITAMIN 10 ML, MAGNESIUM SULF SDV 50% 8 MEQ, THIAMINE INJ 100... INJ SCH (20:25)
[2025-01-09 01:00] VITALS: BP 117/90; PULSE 90; RESP 17; TEMP 98.3; O2SAT 98
[2025-01-09 05:00] VITALS: BP 126/83; PULSE 77; RESP 17; TEMP 98.2; O2SAT 98
[2025-01-09 08:57] VITALS: BP 136/91; PULSE 71; RESP 16; TEMP 98.1; O2SAT 98
[2025-01-09] MEDS ORDERED: LIDOCAINE 2% (LOCAL ANESTH.) PF 5ml SDV ONE (09:16)
[2025-01-09] MEDS ORDERED: PROPOFOL 10 MG/ML 20 ML IV ONE (09:17)
[2025-01-09 09:28] VITALS: O2SAT 100
--- NOTE | 2025-01-09 09:37 | DVHOP2 ---
Operative Report DATE OF OPERATION: 01/09/25 PROCEDURE: Upper Endoscopy with biopsy. PREOPERATIVE INDICATION: The patient is a 34 -year-old male undergoing endoscopy for epigastric pain nausea and vomiting and hematemesis POSTOPERATIVE DIAGNOSES: 1. 2-3 cm sliding-type hiatal hernia with grade A to B linear erosive esop hagitis at the GE junction 2. Mild gastritis otherwise normal examination up to the 2nd and 3rd part of the duodenal with good bile drainage and no active bleeding PROCEDURE PERFORMED BY: Sarah Pete GI NURSE: Davida SCOPE: Olympus videoendoscope. ASA CLASS: 2. PREOPERATIVE MEDICATIONS: Mac sedation, Jean Leone PROCEDURE IN DETAIL: After obtaining an informed consent, the patient was placed on left lateral decubitus position. The patient was then sedated with t he above medications. A bite block was placed between his teeth. The endoscope was then passed through the oropharynx, into the esophagus, and through the stomach and pylorus up to the second and third part of the duodenum. The endoscope was then withdrawn. Second and 3rd part of the duodenum and the duodenal bulb were normal. Duodenal biopsies were obtained The pre-pyloric area antrum and body showed mild gastritis with some hyperemia. Gastric biopsies were obtained. On retroflexion the fundus cardia and angularis were normal. The endoscope was then withdrawn into distal esophagus. Patient had a 2-3 cm sliding-type hiatal hernia with grade B linear erosive esophagitis and superficial ulcers extending into the distal esophagus for 5 cm f GE junction biopsies were obtained. The remaining distal and proximal esophagus and oropharynx were unremarkable. The patient tolerated the procedure well without difficulty. COMPLICATIONS : None SPECIMENS: Duodenal biopsies Gastric biopsies GE junction biopsies DISPOSITION: Transfer back to the floor Stable PLAN: 1. Await for biopsy result 2. Will place pt on Protonix 40 mg bid p.o. 3. Carafate 1 g p.o. twice a day 4. Resume soft mechanical diet advance as tolerated 5. Outpatient follow up with me in 4-6 weeks to review results discuss further management, patient appears stable for discharge from GI perspective SARAH PETE MD Jan 09, 2025 09:37
[2025-01-09] MEDS ORDERED: MAGNESIUM OXIDE 400 MG TAB PO SCH (10:00)
[2025-01-09] MEDS ORDERED: THIAMINE HCL 100 MG TAB PO SCH (10:00)
[2025-01-09] MEDS ORDERED: MULTIPLE VITAMIN TAB PO SCH (10:00)
[2025-01-09] MEDS ORDERED: FOLIC ACID 1 MG TAB PO SCH (10:00)
[2025-01-09 13:10] VITALS: BP 114/86; PULSE 77; RESP 14; TEMP 98.1; O2SAT 98
[2025-01-09] MEDS ORDERED: SUCR1TAB31 OR (15:54)
[2025-01-09] MEDS ORDERED: PANT40TA2 PO (15:54)
--- NOTE | 2025-01-09 15:56 | DVHDS2 ---
Discharge Summary Date of Admission Jan 07, 2025 at 05:35 Date of Discharge: Jan 09, 2025 Labs/Diagnostic Data: Laboratory Results Test 01/07/25 08:04 01/06/25 23:07 White Blood Count 10.1 10^3/uL (4.4-10.8) Red Blood Count 5.10 10^6/uL (4.5-5.90) Hemoglobin 16.3 g/dL (13.5-17.5) Hematocrit 45.4 % (41.0-53.0) Mean Corpuscular Volume 89.0 fL (80.0-100.0) Mean Corpuscular Hemoglobin 31.9 pg (28.0-32.0) Mean Corpuscular Hemoglobin Concent 35.8 g/dL (32.0-36.0) Red Cell Distribution Width 14.3 % (11.8-14.3) Platelet Count 354 10^3/uL (140-450) Mean Platelet Volume 7.6 fL (6.9-10.8) Neutrophils (%) (Auto) 81.9 % (37.0-80.0) Lymphocytes (%) (Auto) 10.7 % (10.0-50.0) Monocytes (%) (Auto) 7.0 % (0.0-12.0) Eosinophils (%) (Auto) 0.0 % (0.0-7.0) Basophils (%) (Auto) 0.4 % (0.0-2.0) Neutrophils # (Auto) 8.3 10 ^3/uL (1.6-8.6) Lymphocytes # (Auto) 1.1 10 ^3/uL (0.4-5.4) Monocytes # (Auto) 0.7 10 ^3/uL (0-1.3) Eosinophils # (Auto) 0 10 ^3/uL (0-0.8) Basophils # (Auto) 0 10 ^3/uL (0-0.2) Nucleated Red Blood Cells 0.1 % Sodium Level 139 mmol/L (136-145) Potassium Level 4.1 mmol/L (3.5-5.1) Chloride Level 102 mmol/L (98-107) Carbon Dioxide Level 20 mmol/L (20-31) Anion Gap 17 (5-15) Blood Urea Nitrogen 5 mg/dL (9-23) Creatinine 1.00 mg/dL (0.700-1.30) Glomerular Filtration Rate Calc 102 mL/min (>90) BUN/Creatinine Ratio 5.0 (10.0-20.0) Serum Glucose 135 mg/dL (74-106) Calcium Level 9.4 mg/dL (8.7-10.4) Magnesium Level 1.8 mg/dL (1.6-2.6) C-Reactive Protein High Sensitivity 0.15 mg/dL (<1.0) Lipase 41 U/L (12-53) Other Laboratory Tests 01/07/25 08:04 Brief Hx & Hospital Course: 34-year-old male with a known history of chronic alcoholism, illicit drug use including cocaine, history of chronic marijuana use presented to the hospital with the abdominal pain nausea and vomiting found to have pancolitis suspected inflammatory bowel disease versus ischemic colitis. Patient was complaining of epigastric pain eventually underwent EGD which shows evidence of grade EEA/B esophagitis with a renal ulcers, gastritis. Patient does have known history of chronic alcoholism chronic illicit drug use as well as chronic tobacco use disorder. Drug rehab as an outpatient patient's can be discharged on Protonix and Carafate as per GI. Patient was recommended complete abstinence from alcohol and drug rehab with the other illicit drug use and also tobacco cessation counseling. Patient is currently understand verbalized understanding and agreeable to plan. Condition at Discharge: Stable Final Diagnosis/Problems List 34-year-old male with a known history of chronic alcoholism, illicit drug use including cocaine, history of chronic marijuana use presented to the hospital with the abdominal pain nausea and vomiting found to have 1. Intractable abdominal pain with the nausea and vomiting, currently nausea and vomiting resolved 2. Pancolitis rule out inflammatory bowel disease/ischemic colitis 3. Peptic ulcer disease 4. Chronic alcoholism 5. Polysubstance abuse Discharge Disposition: Home SNF Discharge Will this Physician continue t: No Discharge Instruct/Medications Diet: Regular Activity: No Restrictions, As Tolerated Follow Up/Referral: Follow up with the PCP in 1-2 weeks Follow up with the GI doctor Allison Pete in 1-2 Medications: Protonix and Carafate as prescribed. Scheduled Pantoprazole Sodium Sesquihydr (Protonix), 40 MG PO BID Sucralfate (Carafate), 1 GM OR QIDACHS Discharge Statement: "Patient was advised to return to the ER or call 911 if any headaches, dizziness, shortness of breath, chest pain, abdominal pain, bleeding, fevers, or worsening of medical condition. Patient was counseled about treatment plan, medications, possible side effects, patientverbalized understanding. All questions were answered to the best of my ability. This discharge took greater then 30 minutes in planning, reviewing documentation, counseling the patient, and discussing with other team members." ASSESSMENT ASSESSMENT Assessment 34-year-old male with a known history of chronic alcoholism, illicit drug use including cocaine, history of chronic marijuana use presented to the hospital with the abdominal pain nausea and vomiting found to have 1. Intractable abdominal pain with the nausea and vomiting, currently nausea and vomiting resolved 2. Pancolitis rule out inflammatory bowel disease/ischemic colitis 3. Peptic ulcer disease 4. Chronic alcoholism 5. Polysubstance abuse Date of Service: Jan 09, 2025 Billing Provider: PEPPER CHERY MD Common Visit Codes: [id number] DISCH DAY >30min PEPPER CHERY MD Jan 09, 2025 15:56
[2025-01-09 17:03] VITALS: BP 110/71; PULSE 95; RESP 18; TEMP 98; O2SAT 97
== END 2025-01-09 18:09 | disposition home or self-care (01) | DRG 249 ==
LOC: ER 22:00 → EDBD 22:00 → OVERFLOW 01-07 05:35 → ER 01-07 05:43 → WEST WING 01-07 15:00
PROVIDERS: ADMIT Hospitalist; ATTEND Hospitalist
PROC: 0DB98ZX Excision of Duodenum, Via Natural or Artificial Opening Endoscopic, Diagnostic (ICD-10-PCS; 2025-01-09)
PROC: 0DB48ZX Excision of Esophagogastric Junction, Via Natural or Artificial Opening Endoscopic, Diagnostic (ICD-10-PCS; 2025-01-09)
PROC: 0DB68ZX Excision of Stomach, Via Natural or Artificial Opening Endoscopic, Diagnostic (ICD-10-PCS; principal; 2025-01-09 09:15)
DX: K52.9 Noninfective gastroenteritis and colitis, unspecified (principal); K22.11 Ulcer of esophagus with bleeding; K27.4 Chronic or unspecified peptic ulcer, site unspecified, with hemorrhage; K55.9 Vascular disorder of intestine, unspecified; F10.139 Alcohol abuse with withdrawal, unspecified; F19.10 Other psychoactive substance abuse, uncomplicated; K29.71 Gastritis, unspecified, with bleeding; K44.9 Diaphragmatic hernia without obstruction or gangrene; K21.9 Gastro-esophageal reflux disease without esophagitis; E87.6 Hypokalemia; Z87.891 Personal history of nicotine dependence; N30.00 Acute cystitis without hematuria
CPT/HCPCS: 36415; 43239; 74177; 80048; 83690; 83735; 85025; 86141; 96365; 96375; G0378; J2003; J2405; J2470; J2704; J3490